=== PATIENT | male | born 1955 | race Caucasian/White ===

== ENCOUNTER 2018-06-19 19:02 | Outpatient (CLI) | payer OTHER | END 2018-06-19 19:03 | disposition EMS.NT | LOC: EMS 19:02 | PROVIDERS: ATTEND Surgery | DX: R55 Syncope and collapse (principal) ==

== ENCOUNTER 2023-03-02 10:04 | Outpatient (CLI) | payer MEDICARE, OTHER | END 2023-03-02 10:05 | disposition short-term general hospital (02) | LOC: EMS 10:04 | DX: R55 Syncope and collapse (principal); R42 Dizziness and giddiness | CPT/HCPCS: A0425; A0427 ==